=== PATIENT | male | born 1980 | race African-American/Black ===

== ENCOUNTER 2018-01-28 12:16 | Emergency (ER) | payer MEDICAID ==
[~2018-01-28] VITALS: Ht 190.5 cm; Wt 125.0 kg
[~2018-01-28 12:16] MED LIST: AMLO10TA80 PO; ATOR20TA65 PO; FURO40TA5 PO; LISI-604 PO; POTA20TA82 PO
[2018-01-28 13:20] LABS: BASOPHILS % 0.9 % (0.0-2.0); EOSINOPHILS % 1.5 % (0.0-5.0); HEMOGLOBIN. 15.6 g/dL (14.0-18.0); LYMPHOCYTES % 26.6 % (20.0-50.0); MEAN CORPUSCULAR HEMOGLOBIN 31.4 pg (28.0-32.0); MEAN CORPUSCULAR VOLUME 88.4 fL (80.0-94.0); MEAN PLATELET VOLUME 8.2 fl (7.4-10.4); MONOCYTES % 5.6 % (2.0-8.0); NEUTROPHILS % 65.4 % (40.0-76.0); PLATELET 203 x1000/uL (130-400); RED BLOOD CELL COUNT 4.98 mill/uL (4.7-6.1); RED CELL DISTRIBUTION WIDTH 13.4 % (11.6-14.6)
[2018-01-28 13:27] LABS: CHLORIDE 107 mEq/L (98-107); INR 1.1
[2018-01-28] MEDS ORDERED: LABETALOL 5MG/ML SYR 20 MG/4 ML SYRINGE IV ONE (15:45)
[2018-01-28] MEDS ORDERED: FUROSEMIDE 20MG/2ML VIAL IVP ONE (16:15)
[2018-01-28] MEDS ORDERED: AMLODIPINE 5MG TABLET PO ONE (16:15)
[2018-01-28] MEDS ORDERED: LISINOPRIL 10MG TABLET PO ONE (16:15)
[2018-01-28] MEDS ORDERED: CLONIDINE 0.2MG TABLET PO ONE (18:15)
[2018-01-28 19:02] VITALS: BP 182/101
== END 2018-01-28 19:02 | disposition home or self-care (01) ==
LOC: ER 12:59
DX: R04.0 Epistaxis (principal); I10 Essential (primary) hypertension; R00.0 Tachycardia, unspecified
CPT/HCPCS: 36415; 80053; 85025; 85610; 93005; 96374; 96375; 99285; J1940; J3490; Z7610